=== PATIENT | male | born 1995 | race Caucasian/White ===

== ENCOUNTER 2024-04-03 13:24 | Emergency (ER) | payer SELFPAY ==
[2024-04-03 13:25] VITALS: BP 176/112; PULSE 69; RESP 14; TEMP 35.5; O2SAT 98; BMI 46.9
--- NOTE | 2024-04-03 14:00 | RAD_ITS ---
STUDY: X-RAY - LEFT FOOT CLINICAL: Male, 28 years old. Twisting injury. TECHNIQUE: 3 view(s) of the foot. COMPARISON: None. FINDINGS: Normal talus, calcaneus, and tarsal bones. Normal visualized subtalar, talonavicular, calcaneocuboid, tarsal and tarsometatarsal articulations. Normal metatarsi. Normal metatarsophalangeal joint of the great toe. Normal tibial and fibular sesamoid bones. Normal interphalangeal joint of the great toe. Normal phalanges of the great toe. Normal second through fifth metatarsophalangeal joints. Normal interphalangeal joints and phalanges of the lesser toes. The soft tissue structures are unremarkable. RAD/Foot min 3 Views IMPRESSION: Normal x-ray examination of the foot. Electronically Signed: Anibal Bee MD at 14:26 EDT ,
--- NOTE | 2024-04-03 14:00 | RAD_ITS ---
STUDY: X-RAY - LEFT ANKLE REASON FOR EXAM: Male, 28 years old. Twisting injury. TECHNIQUE: 3 view(s) of the ankle. COMPARISON: None. FINDINGS: Normal visualized distal tibia and fibula. Normal medial and lateral malleoli. Normal tibiotalar articulation and ankle mortise. Small spur at the insertion of the Achilles tendon. The visualized subtalar, talonavicular, calcaneocuboid and tarsal articulations are normal. The soft tissue structures are unremarkable. RAD/Ankle min 3 Views IMPRESSION: Normal x-ray examination of the ankle. Electronically Signed: Anibal Bee MD at 14:27 EDT ,
--- NOTE | 2024-04-03 14:32 | EDS_ITS ---
HPI History of Present Illness HPI Narrative: Patient presents with left ankle and foot injury that occurred 4 days ago. Patient states he was moving some wood and the wood pile fell onto his ankle and foot. Patient states it caused him to twist his ankle. Patient describes the pain as aching and stabbing. Patient states pain is worse with weightbearing, ambulation, and movement. Patient denies any paresthesias or weakness. Patient states nothing makes his pain better. Patient denies any other injuries. Chief Complaint: Lower Extremity Injury Informant: patient Occured/Mechanism Mechanism/Context: Yes blunt trauma Onset/Context/Timing Onset: Days (4) Context: Sudden Onset Timing: Continuous Quality of Pain: Aching and Stabbing Location: Left ankle and left foot Worsened by: Ambulation, weightbearing, movement Relieved by: Nothing Associated Symptoms Associated Symptoms: Negative for Parasthesia, Weakness or Loss of Funtion PFSH PFS Medical History no medical history no medical history Home Medications ?Medication ?Instructions ?Recorded ?Last Taken ?Type No Known/Unobtainable [No Known 07/08/14 Unknown History Home Medications] Allergy/AdvReac Type Severity Reaction Status Date / Time No Known Allergies Allergy Verified 04/03/24 13:28 Surgical History no surgical history no surgical history Social History Smoking Status: Current every day smoker tobacco type: cigarettes ROS ROS ED Constitutional Constitutional ED: Denies chills or fever(s) Eyes Eyes: Denies blurry vision or change in vision ENT ENT ED: Denies rhinorrhea or sore throat Cardiovascular Cardiovascular: Denies chest pain or palpitations Respiratory/Chest Respiratory/Chest: Denies cough or dyspnea Gastrointestinal Gastrointestinal: Denies nausea or vomiting Genitourinary Genitourinary ED: Denies dysuria or hematuria Musculoskeletal Musculoskeletal: Denies back pain or neck pain Integumentary Denies abscess or rash Neurologic Neurologic: Denies headache(s) or weakness Allergic/Immunologic Allergic/Immunologic ED: Denies mouth swelling or urticaria EXAM Physical Exam Const Vital Signs: 04/03/24 13:25 04/03/24 14:47 Temperature 96 F L 97.6 F L Temperature Source Temporal Pulse Rate 69 64 Respiratory Rate 14 16 Blood Pressure 176/112 H 121/78 H Blood Pressure Mean 133 92 Pulse Ox 98 99 Oxygen Delivery Method Room Air Positive well nourished and well developed General Appearance ED: well developed and NAD HEENT Reports moist mucous membranes Neck full ROM and supple Extremity Extremity Narrative: There is tenderness and mild edema over the medial aspect of the dorsum of the left foot and lateral aspect of the left ankle. There is no obvious deformity noted. Range of motion was limited in all motions of the left foot and ankle secondary to pain. Sensation was intact to light touch in all digits. Capillary refill was less than 2 seconds in all digits. There is no tenderness over the fifth metatarsal. There is no tenderness over the proximal fibula. Pedal pulses are equal bilaterally. Neuro oriented x3, CN's II-XII intact bilaterally, moves all extremities and no sensory deficits noted Sensorium / Orientation: alert Motor Exam: strength 5/5 throughout Psych mental status grossly normal MDM MDM MDM Narrative Medical decision making narrative: Differential diagnosis includes fracture, sprain, and contusion. X-rays of the left foot will be obtained to assess for fracture. X-rays of the left ankle will be obtained to assess for fracture. Radiography Diagnostic Testing: Clinical Impression(s) from Imaging Studies Ankle X-Ray 04/03/24 14:00 IMPRESSION: Normal x-ray examination of the ankle. Electronically Signed: Anibal Bee MD at 14:27 EDT , Foot X-Ray 04/03/24 14:00 IMPRESSION: Normal x-ray examination of the foot. Electronically Signed: Anibal Bee MD at 14:26 EDT , X-rays of the left ankle were obtained. There are 3 views. On my independent interpretation, there is no acute fracture. There is no dislocation. There is no soft tissue swelling. Radiologist also interpreted the x-rays and agrees. X-rays of the left foot were obtained. There are 3 views. On my independent interpretation, there is no acute fracture. There is no dislocation. There is no soft tissue swelling. Radiologist also interpreted the x-rays and agrees. Treatment and Re-Evaluation Narrative: Patient was advised of his findings. Patient was instructed to ice and elevate the left ankle. Patient was given an Aircast. Patient was instructed to take Tylenol or ibuprofen as needed for pain. Patient was instructed to follow-up with his primary care physician in 5 to 7 days. Patient understood and was agreeable with the plan. All questions were answered. Discharge Plan Triage Chief Complaint: Lower Extremity Injury ED Provider: Nato Sutton Dx/Rx/DC Orders Clinical Impression: Left ankle sprain, Contusion of left foot Instructions: ED Sprain Ankle W X Ray, ED Foot Contusion Prescriptions: No Action No Known Home Medications Primary Care Provider: Care Physician,No Primary Referrals: Yoon Velasquez MD [Med Staff - [employer]] - 5-7 Days Care Physician,No Primary [Primary Care Provider] - Print Language: Kyrgyz Disposition Disposition: Home, Self Care Discharge Date/Time: 04/03/24 14:49
[2024-04-03 14:47] VITALS: BP 121/78; PULSE 64; RESP 16; TEMP 36.4; O2SAT 99
== END 2024-04-03 14:49 | disposition home or self-care (01) ==
PROVIDERS: Emergency Provider Emergency Medicine; Visit Provider Emergency Medicine
DX: S93.402A Sprain of unspecified ligament of left ankle, initial encounter (principal); F17.210 Nicotine dependence, cigarettes, uncomplicated; S90.32XA Contusion of left foot, initial encounter; W22.09XA Striking against other stationary object, initial encounter; Y93.89 Activity, other specified
CPT/HCPCS: 73610; 73630; 99283